=== PATIENT | female | born 1945 | race Caucasian/White ===

== ENCOUNTER 2023-10-17 08:13 | Outpatient (CLI) | payer MEDICARE, BC ==
[2023-10-17] MEDS ORDERED: Magnevist 469MG/ML 20 ML VIAL ONE (09:55)
== END 2023-10-17 08:14 | disposition home or self-care (01) ==
LOC: CSHMRI 08:13
PROVIDERS: ATTEND Family Medicine
DX: F07.81 Postconcussional syndrome (principal); W19.XXXD Unspecified fall, subsequent encounter; R20.0 Anesthesia of skin; R22.0 Localized swelling, mass and lump, head; R42 Dizziness and giddiness; R47.89 Other speech disturbances
CPT/HCPCS: 70553; 82565